=== PATIENT | female | born 1965 | race African-American/Black ===

== ENCOUNTER 2019-03-15 17:16 | Emergency (ER) | payer MEDICAID ==
[~2019-03-15] VITALS: Ht 152.4 cm; Wt 71.7 kg
[~2019-03-15 17:16] MED LIST: IBUPROFEN600 MG ORAL
[2019-03-15 17:19] VITALS: BP 134/80
--- NOTE | 2019-03-15 17:30 | NUR ---
ED Nurse Note: PT WALKED IN DUE TO COUGHING AND DIFFICULTY IN BREATHING ESPECIALLY AT NIGHT X 3 WEEKS. NO FEVER UPON ARRIVAL. CP WHEN COUGHING. AAO X4 AND AMBULATORY. SPEAKS IN CLEAR SENTENCES.
--- NOTE | 2019-03-15 18:12 | Emergency Room Report ---
History of Present Illness General Chief Complaint: Upper Respiratory Illness Source: Patient Present Illness HPI 53-year-old female presents to the emergency department complaining of persistent cough and wheezing x3 weeks. Patient reports chills she denies fevers she denies history of smoking she reports she has had intermittent asthma in the past and does have a breathing machine at home. She denies productive sputum she denies swelling of the lower extremities. She denies chest pain or palpitations. She does report some 6/10 in severity pain in the rib cage area upon persistent coughing. She reports having nebulizer at home but is out of the albuterol vials. She denies sore throat, neck pain/stiffness , photophobia, headache or swollen tender lymph nodes. Denies recent travel or ill contacts. Denies sore throat, ear pain, high fevers, lethargy, neck pain/ stiffness, irritability, photophobia dehydration, N/V/D. Denies Cp, Palpitations , LOC, AMS, seizures, paresthesias, or changes in Hearing or vision, no Sudden severe VALE. Denies hx of smoking, Allergies: Coded Allergies: No Known Allergies (Unverified , 02/13/16) Patient History Past Medical History: see triage record Past Surgical History: none Pertinent Family History: none Last Menstrual Period: none Now: No Reviewed Nursing Documentation: PMH: Agreed; PSxH: Agreed Nursing Documentation-PMH Past Medical History: No Stated History Review of Systems All Other Systems: negative except mentioned in HPI Physical Exam Vital Signs Date Time Temp Pulse Resp B/P (MAP) Pulse Ox O2 Delivery O2 Flow Rate FiO2 03/15/19 17:19 98.6 91 22 134/80 (98) 97 Room Air Sp02 EP Interpretation: reviewed, normal General Appearance: no apparent distress, alert, GCS 15, non-toxic Head: normocephalic, atraumatic Eyes: bilateral eye normal inspection, bilateral eye PERRL ENT: hearing grossly normal, normal pharynx, normal voice, TMs + canals normal , uvula midline, moist mucus membranes Neck: full range of motion, no meningismus Respiratory: chest non-tender, lungs clear, normal breath sounds, no respiratory distress, no accessory muscle use, speaking full sentences, wheezing - slight wheeze heard bilaterally upon exhaling Cardiovascular #1: regular rate, rhythm, no edema, normal capillary refill Musculoskeletal: normal range of motion, gait/station normal, non-tender Neurologic: alert, motor strength/tone normal, oriented x3, sensory intact, responsive, speech normal Psychiatric: judgement/insight normal Skin: no rash, normal color, normal inspection Lymphatic: no adenopathy Medical Decision Making JAMAL Attestation Dr. Cavanaugh is my supervising Physician whom patient management has been discussed with. Diagnostic Impression: Primary Impression: Atypical pneumonia ER Course 53-year-old female presents to the emergency department complaining of persistent cough and wheezing x3 weeks. Patient reports chills she denies fevers she denies history of smoking she reports she has had intermittent asthma in the past and does have a breathing machine at home. She denies productive sputum she denies swelling of the lower extremities. She denies chest pain or palpitations. She does report some 6/10 in severity pain in the rib cage area upon persistent coughing. She denies sore throat, neck pain/ stiffness, photophobia, headache or swollen tender lymph nodes. Denies recent travel or ill contacts. Denies sore throat, ear pain, high fevers, lethargy, neck pain/stiffness, irritability, photophobia dehydration, N/V/D. Denies Cp, Palpitations, LOC, AMS, seizures, paresthesias, or changes in Hearing or vision , no Sudden severe VALE. Denies hx of smoking, asthma or COPD. Ddx considered but are not limited to URI, pneumonia, PE, strep pharyngitis, meningitis. Vital signs: Pt.is afebrile VS are WNL H&PE are most consistent with atypical PNA in the presence of reactive airway.-- Patient is nontoxic in appearance and in no acute distress at this time. Slight wheeze heard bilaterally upon exhaling. She is not in any acute respiratory distress at this time. ORDERS: -CXR: Unremarkable ED INTERVENTIONS: None required at this time. DISCHARGE: At this time pt. is stable for d/c to home. Will provide printed patient care instructions, and any necessary prescriptions. Care plan and follow up instructions have been discussed with the patient prior to discharge. Chest X-Ray Diagnostic Results Chest X-Ray Diagnostic Results : Chest X-Ray Ordered: Yes # of Views/Limited/Complete: 1 View Indication: Shortness of Breath EP Interpretation: Yes JAMAL Xray: Interpretation reviewed, by supervising MD, and agrees with findings. Interpretation: no consolidation, no effusion, no pneumothorax, no acute cardiopulmonary disease Impression: No acute disease Electronically Signed by: Jayda Porras PA-C Last Vital Signs Date Time Temp Pulse Resp B/P (MAP) Pulse Ox O2 Delivery O2 Flow Rate FiO2 03/15/19 17:29 86 22 Room Air 03/15/19 17:19 98.6 134/80 97 Disposition: HOME, SELF-CARE Condition: Stable Scripts Albuterol Sulfate* (ALBUTEROL SULFATE HHN*) 2.5 Mg/3 Ml Vial.neb 3 ML INH Q6H PRN for Shortness of Breath, #30 EA 0 Refills Prov: Jayda Porras 03/15/19 Azithromycin* (ZITHROMAX*) 250 Mg Tablet 250 MG ORAL DAILY, #6 TAB 0 Refills Take two tables once daily for 1 day, then one tablet once daily for 4 days. Prov: Jayda Porras 03/15/19 Codeine/Promethazine Hcl* (PROMETHAZINE-CODEINE SYRUP*) 118 Ml Syrup 5 ML ORAL Q6H PRN for For Cough, #120 ML 0 Refills Prov: Jayda Porras 03/15/19 Patient Instructions: Upper Respiratory Infection, Adult Additional Instructions: Take medications as directed. Follow up with a Primary Care Provider in 3-5 days, even if your symptoms have resolved. Return sooner to ED if new symptoms occur, or current symptoms become worse. Do not drink alcohol, drive, or operate heavy machinery while taking Cough Syrup as this may cause drowsiness. - Please note that this Emergency Department Report was dictated using [employer] technology software, occasionally this can lead to erroneous entry secondary to interpretation by the dictation equipment. Jayda Porras Mar 15, 2019 18:12
[2019-03-15] MEDS ORDERED: PROMETHAZINE-C118 M1 ORAL (18:14)
[2019-03-15] MEDS ORDERED: ALBUTEROL2.5 MG/3 M INH (18:15)
[2019-03-15] MEDS ORDERED: ZITHROMAX250 MG ORAL (18:15)
[2019-03-15 18:34] VITALS: BP 129/78
--- NOTE | 2019-03-15 18:34 | NUR ---
ER DISCHARGE NOTE: Patient is cleared to be discharged per PA, pt is aox4, on room air, with stable vital signs. pt was given dc and prescription instructions, pt was able to verbalize understanding, pt id band removed. pt is able to ambulate with steady gait. pt took all belongings.
[2019-03-15] MEDS ORDERED: ALBUTEROL SULF8.5 GM INH (21:04)
--- NOTE | 2019-03-16 08:43 | Diagnostic Imaging Report ---
Indication: Cough for 4 days Technique: One view of the chest Comparison: none Findings: Body habitus limits evaluation. The heart is upper limits normal size. The lungs and pleural spaces are clear. Impression: No acute process
== END 2019-03-15 18:34 | disposition home or self-care (01) ==
LOC: EMR 17:45
DX: J18.9 Pneumonia, unspecified organism (principal)
CPT/HCPCS: 71045; J7512; Z7502; 99283

== ENCOUNTER 2019-03-30 12:28 | Emergency (ER) | payer MEDICAID ==
[~2019-03-30] VITALS: Ht 152.4 cm; Wt 72.6 kg
[~2019-03-30 12:28] MED LIST changes: +ALBUTEROL SULF8.5 GM INH; +ALBUTEROL2.5 MG/3 M INH; +PROMETHAZINE-C118 M1 ORAL; +ZITHROMAX250 MG ORAL
--- NOTE | 2019-03-30 12:45 | NUR ---
ED Nurse Note: pt ambulated to ed c/o genralized bodyaches, harsh cough per pt may be causing the CP. pt reports nasal congestions and fever x 3 days. pt shows no NAD. urine specimen obtained. pt denies n/v/d, or recent travel.
[2019-03-30 12:47] VITALS: BP 153/94
--- NOTE | 2019-03-30 12:49 | NUR ---
ED Nurse Note: xray at bedside
--- NOTE | 2019-03-30 12:58 | NUR ---
ED Nurse Note: xray compeleted
[2019-03-30] MEDS ORDERED: VENTOLIN HFA18 GM INH (13:12)
[2019-03-30] MEDS ORDERED: TAMIFLU75 MG ORAL (13:12)
[2019-03-30] MEDS ORDERED: GUAIFENESI100 MG/5 M ORAL (13:12)
--- NOTE | 2019-03-30 13:12 | Emergency Room Report ---
History of Present Illness General Chief Complaint: Flu Like Symptoms Source: Patient Present Illness HPI 53-year-old female with no symptom past nuchal history here complaining of 2 days of generalized body ache, fever and chills, cough and congestion. Patient was previously seen at [facility] about 2 weeks ago for similar symptoms. Patient reports that this is new onset. Denies abdominal pain, nausea vomiting , recent travel. Denies urinary frequency and urgency. Denies . Has not taken medication for symptom relief. Denies chest pain, shortness of breath , palpitation, headache and dizziness. Patient appears to be afebrile and the rest of vital signs are within normal limits. Allergies: Coded Allergies: PENICILLINS (Verified Allergy, Unknown, 03/30/19) Patient History Past Surgical History: none Pertinent Family History: none Now: No Immunizations: UTD Reviewed Nursing Documentation: PMH: Agreed; PSxH: Agreed Nursing Documentation-PMH Past Medical History: No Stated History Review of Systems All Other Systems: negative except mentioned in HPI Physical Exam Vital Signs Date Time Temp Pulse Resp B/P (MAP) Pulse Ox O2 Delivery O2 Flow Rate FiO2 03/30/19 12:34 97.9 93 20 153/94 (113) 95 Room Air Sp02 EP Interpretation: reviewed, normal General Appearance: no apparent distress, alert, GCS 15, non-toxic Head: normocephalic, atraumatic Eyes: bilateral eye normal inspection, bilateral eye PERRL ENT: hearing grossly normal, normal pharynx, no angioedema, normal voice Neck: full range of motion, supple, thyroid normal, no meningismus, supple/symm /no masses Respiratory: chest non-tender, lungs clear, normal breath sounds, no rhonchi, no respiratory distress, no retraction, no accessory muscle use, no wheezing, speaking full sentences Cardiovascular #1: regular rate, rhythm, no edema, no murmur, normal capillary refill Gastrointestinal: normal bowel sounds, non tender, soft, no bruit, non- distended, no guarding, no rebound Rectal: deferred Genitourinary: no CVA tenderness Musculoskeletal: back normal, normal range of motion, gait/station normal, non- tender Neurologic: alert, motor strength/tone normal, oriented x3, sensory intact, responsive, speech normal Psychiatric: judgement/insight normal, memory normal, mood/affect normal, no suicidal/homicidal ideation Skin: no rash, normal color Lymphatic: no adenopathy Medical Decision Making PA Attestation All my diagnosis and treatment plans were reviewed ad discussed with my supervising physician Dr. Cruz Diagnostic Impression: Primary Impression: Flu-like symptoms ER Course 53-year-old female with no symptom past nuchal history here complaining of 2 days of generalized body ache, fever and chills, cough and congestion. Patient was previously seen at [place] about 2 weeks ago for similar symptoms. Patient reports that this is new onset. Denies abdominal pain, nausea vomiting , recent travel. Denies urinary frequency and urgency. Denies . Has not taken medication for symptom relief. Denies chest pain, shortness of breath , palpitation, headache and dizziness. Patient appears to be afebrile and the rest of vital signs are within normal limits. Ddx considered but are not limited to: strep pharyngitis, URI, tonsillitis, peritonsillar abscess, influenza Vital signs: are WNL, pt. is afebrile H&PE are most consistent with: Influenza ORDERS: Chest x-ray, Tamiflu, guaifenesin, albuterol ED INTERVENTIONS: None required at this time. DISCHARGE: At this time pt. is stable for d/c to home. Will provide printed patient care instructions, and any necessary prescriptions. Care plan and follow up instructions have been discussed with the patient prior to discharge. Patient take medication as directed, follow with primary care provider, at this time does not need antibiotics as patient presents with flulike symptoms. However worsening symptoms return to the emergency room Chest X-Ray Diagnostic Results Chest X-Ray Diagnostic Results : Chest X-Ray Ordered: Yes # of Views/Limited/Complete: 1 View Indication: Other - Cough EP Interpretation: Yes JAMAL Xray: Interpretation reviewed, by supervising MD, and agrees with findings. Interpretation: no consolidation, no effusion, no pneumothorax Impression: No acute disease Electronically Signed by: Inderjit Webster PA-C Last Vital Signs Date Time Temp Pulse Resp B/P (MAP) Pulse Ox O2 Delivery O2 Flow Rate FiO2 03/30/19 12:47 93 20 Room Air 03/30/19 12:47 97.9 153/94 95 Disposition: HOME, SELF-CARE Condition: Stable Scripts Albuterol Sulfate (VENTOLIN HFA) 18 Gm Hfa.aer.ad 2 PUFFS INH EVERY 6 HOURS, #18 GM 0 Refills Prov: Inderjit Gray 03/30/19 Guaifenesin* (GUAIFENESIN*) 100 Mg/5 Ml Liquid 5 ML ORAL Q6H, #120 ML 0 Refills Prov: Inderjit Gray 03/30/19 Oseltamivir Phosphate (Tamiflu) 75 Mg Capsule 75 MG ORAL TWICE A DAY for 5 Days, #10 CAP Prov: Inderjit Gray 03/30/19 Referrals: [facility],REFERR[facility] (PCP) Additional Instructions: Take medication as directed, follow-up with your primary care provider, increase oral hydration, if worsening symptoms return to the emergency room Inderjit Gray Mar 30, 2019 13:12
--- NOTE | 2019-03-30 13:20 | NUR ---
ER DISCHARGE NOTE: Patient is cleared to be discharged per ERMD, pt is aox4, on room air, with stable vital signs. pt was given dc and prescription instructions, pt was able to verbalize understanding, pt id band removed. pt is able to ambulate with steady gait. pt took all belongings. pt left with significant other
[2019-03-30 13:21] VITALS: BP 145/94
--- NOTE | 2019-03-30 13:39 | Diagnostic Imaging Report ---
Indication: Dyspnea Comparison: 03/15/2019 A single view chest radiograph was obtained. Findings: Cardiomediastinal appearance is within normal limits for age. Minimal atelectasis at the right lung base noted. Pulmonary vascularity is appropriate. The diaphragmatic contour is smooth and costophrenic angles are sharp. No pleural effusions are identified. The bones are unremarkable. Impression: Minimal right basal atelectasis
== END 2019-03-30 13:20 | disposition home or self-care (01) ==
LOC: EMR 12:49
DX: R50.9 Fever, unspecified (principal); R52 Pain, unspecified; R05 Cough
CPT/HCPCS: 71045; Z7502; 99283